=== PATIENT | female | born 1930 | race Caucasian/White ===

== ENCOUNTER 2017-06-19 09:40 | Outpatient (CLI) | payer OTHER ==
[~2017-06-19 09:40] MED LIST: HYZAAR 50-12.1 UDTAB PO; TOPROL XL50 MG PO
== END 2017-06-19 09:43 | disposition home or self-care (01) ==
LOC: NUCLEAR 09:40
DX: I25.10 Atherosclerotic heart disease of native coronary artery without angina pectoris (principal); R07.89 Other chest pain; R94.31 Abnormal electrocardiogram [ECG] [EKG]; Z95.1 Presence of aortocoronary bypass graft; I35.9 Nonrheumatic aortic valve disorder, unspecified

== ENCOUNTER → 2017-06-28 | Emergency (ER) | payer OTHER, BC ==
[~2017-06-28] VITALS: Ht 157.5 cm; Wt 66.2 kg
== END | disposition home or self-care (01) ==
LOC: ER 08:55
DX: M54.31 Sciatica, right side (principal)

== ENCOUNTER 2018-12-01 10:31 | Outpatient (CLI) | payer OTHER, BC | END 2018-12-01 10:32 | disposition home or self-care (01) | LOC: NUCLEAR 10:31 | DX: R55 Syncope and collapse (principal); R42 Dizziness and giddiness ==

== ENCOUNTER 2019-05-12 16:38 | Emergency (ER) | payer OTHER, BC ==
[~2019-05-12] VITALS: Ht 160 cm; Wt 81.6 kg
[2019-05-12] MEDS ORDERED: NORVASC5 MG PO (19:07)
[2019-05-12] MEDS ORDERED: ISOSORBIDE MONO60 MG (19:07)
[2019-05-12] MEDS ORDERED: LIPITOR40 M1 (19:07)
== END 2019-05-12 20:43 | disposition home or self-care (01) ==
LOC: ER 16:38
DX: R07.89 Other chest pain (principal); M94.0 Chondrocostal junction syndrome [Tietze]